=== PATIENT | female | born 1955 | race Caucasian/White ===

== ENCOUNTER 2018-01-30 08:16 | Emergency (ER) | payer OTHER ==
[~2018-01-30] VITALS: Ht 157.5 cm; Wt 86.2 kg
[2018-01-30] MEDS ORDERED: SIMVASTATIN20 MG PO (08:28)
[2018-01-30] MEDS ORDERED: ASA81 MG (08:28)
== END 2018-01-30 14:18 | disposition home or self-care (01) ==
LOC: ER 08:16
DX: K57.32 Diverticulitis of large intestine without perforation or abscess without bleeding (principal); R10.32 Left lower quadrant pain